=== PATIENT | female | born 1980 | race Caucasian/White ===

== ENCOUNTER 2016-06-15 22:05 | Emergency (ER) | payer SELFPAY ==
--- NOTE | 2016-06-15 22:50 | RAD ---
EXAM DESCRIPTION: XR ANKLE 3 OR MORE VIEWS CLINICAL HISTORY: lateral ankle pain, twisted COMPARISON: None. FINDINGS: AP,lateral and oblique views of the right ankle were submitted. There is soft tissue swelling within the lateral aspect of the ankle. There is no discrete acute fracture or dislocation. The ankle mortise is intact in these non stress views. Bone mineralization is within normal limits. There is no radiopaque foreign body material. IMPRESSION: No acute fracture or dislocation. Electronically signed by: Rocky Block 06/15/2016 22:47
--- NOTE | 2016-06-15 23:30 | ED.PDOC ---
History of Present Illness - General Chief Complaint: Lower Extremity Injury Time Seen by Provider: 06/15/16 22:24 Source: patient Exam Limitations: no limitations - History of Present Illness Initial Comments: the patient is a 35-year-old female presenting to the emergency room secondary to right ankle pain primarily in the lateral aspect since twisting it approximately 6 hours ago. She has had some difficulty walking on it. She is neurovascularly intact. She does have significant swelling and tenderness over the lateral malleolus. No pain in the proximal fibula or knee. No other injuries. No skin lacerations. Passive range of motion is preserved. No pain over the foot otherwise. Occurred: this afternoon Pain - Lower Extremity: moderate: Right Ankle Method of Injury: fell, twisted Improving Factors: immobilization Worsening Factors: movement Allergies/Adverse Reactions: Allergies Sulfa Drugs Allergy (Unverified 09/09/12 02:47) Home Medications: Ambulatory Orders BuPROPion XL [Wellbutrin XL] 150 mg PO BEDTIME 06/15/16 Lorazepam [Ativan] 1 mg PO PRN PRN 06/15/16 Phentermine HCl 37.5 mg PO 0800 06/15/16 Review of Systems - Review of Systems Constitutional: States: no symptoms reported EENTM: States: no symptoms reported Respiratory: States: no symptoms reported Cardiology: States: no symptoms reported Gastrointestinal/Abdominal: States: no symptoms reported Genitourinary: States: no symptoms reported Musculoskeletal: States: see HPI Skin: States: no symptoms reported Neurological: States: no symptoms reported All other Systems: No Change from Baseline Past Medical History (General) - Patient Medical History Hx Seizures: No Hx Stroke: No Hx Asthma: No Hx of COPD: No Hx Cardiac Disorders: No Hx Congestive Heart Failure: No Hx Hypertension: No Hx Diabetes: No Hx MRSA: No - Vaccination History Hx Tetanus, Diphtheria Vaccination: Yes Hx Influenza Vaccination: No Hx Pneumococcal Vaccination: No Immunizations Up to Date: Yes - Social History Hx Tobacco Use: No Hx Alcohol Use: No Hx Substance Use: No - Activities of Daily Living Hospice Agency (if applicable):: None - Female History Patient is a Female of Child Bearing Age (10 -59 yrs old): Yes Patient : No Family Medical History - Family History Father Living Status: Still Living Hx Family Hypertension: Yes Hx Family Diabetes: Yes Mother Hx Family Hypertension: Yes Physical Exam - Physical Exam General Appearance: Alert, Comfortable, No apparent distress Eyes, Ears, Nose, Throat: PERRL/EOMI Neck: full range of motion Cardiovascular/Respiratory: normal peripheral pulses, no respiratory distress Back: normal inspection Thigh/Hip: normal inspection, non-tender, no evidence of injury, normal ROM Leg: normal inspection, non-tender, no evidence of injury, normal ROM Knee: normal inspection, non-tender, no evidence of injury, normal ROM Ankle: other - see history of present illness Foot: normal inspection, non-tender, no evidence of injury, normal ROM Neuro/Tendon: normal sensation, normal motor functions, normal tendon functions Mental Status: alert, oriented x 3 Skin: normal color Comments: Vital Signs - 24 hr 06/15/16 06/15/16 22:17 22:26 Temperature 98.6 F Pulse Rate [ 94 H 94 H Left Radial] Respiratory 18 18 Rate Blood Pressure 133/79 [Left Arm] O2 Sat by Pulse 99 Oximetry Progress - Progress Progress: 06/15/16 23:30 the patient is a 35-year-old female presenting with a right ankle sprain primarily to the lateral aspect. X-ray shows no evidence of fracture or significant dislocation. Motrin and Tylenol can be used for pain control. A walking boot will be used. She needs follow-up with her primary care doctor in 2 weeks. ER warnings were given for any acute worsening. Departure - Departure Clinical Impression: Sprain of right ankle or foot Disposition: Discharge to Home or Self Care Condition: Fair Departure Forms: ED Discharge - Pt. Copy, Patient Portal Self Enrollment Instructions: DI for Ankle Sprain Diet: regular diet Activity: no pushing/pulling with affected limb Home Medications: Ambulatory Orders BuPROPion XL [Wellbutrin XL] 150 mg PO BEDTIME 06/15/16 Lorazepam [Ativan] 1 mg PO PRN PRN 06/15/16 Phentermine HCl 37.5 mg PO 0800 06/15/16 Additional Instructions: the patient is a 35-year-old female presenting with a right ankle sprain primarily to the lateral aspect. X-ray shows no evidence of fracture or significant dislocation. Motrin and Tylenol can be used for pain control. A walking boot will be used. She needs follow-up with her primary care doctor in 2 weeks. ER warnings were given for any acute worsening.
[2016-06-15 23:40] VITALS: BP 133/70; TEMP 98.2; O2SAT 97
== END 2016-06-15 23:44 | disposition home or self-care (01) ==
LOC: ER 22:05
DX: S93.491A Sprain of other ligament of right ankle, initial encounter (principal); Z88.2 Allergy status to sulfonamides; X50.1XXA Overexertion from prolonged static or awkward postures, initial encounter

== ENCOUNTER 2019-02-20 11:51 | Emergency (ER) | payer BC ==
[2019-02-20] MEDS ORDERED: KETOROLAC TROMETHAMINE INJ 30 MG/ML VIAL IM ONE (12:44)
--- NOTE | 2019-02-20 13:12 | RAD ---
Study: 3 View Right Shoulder Indication: right shoulder pain x 1 month, worsening Comparison: None. Impression: A.C. and glenohumeral joint alignment normal without acute fracture or dislocation. No advanced osteoarthritis. Electronically signed by: Boston Mcintosh MD 02/20/2019 1:11 PM CDT
--- NOTE | 2019-02-20 13:26 | ED.PDOC ---
History of Present Illness - General Chief Complaint: General Stated Complaint: R shoulder pain Time Seen by Provider: 02/20/19 12:43 Source: patient, RN notes reviewed, Vital Signs reviewed Exam Limitations: no limitations - History of Present Illness Initial Comments: Pt with right shoulder pain, worsening x 1 month. No known injury. 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 Pt denies any numbness or tingling. Pt c/o crepitus and reduced ROM of the shoulder. Pain is burning/stabbing. Worse with movement. Nothing seems to help the pain. Timing/Duration: getting worse, other - [id number] Severity: moderate Improving Factors: nothing Worsening Factors: movement Associated Symptoms: denies symptoms Allergies/Adverse Reactions: Allergies Sulfa Drugs Allergy (Verified 02/20/19 12:50) Home Medications: Ambulatory Orders BuPROPion XL [Wellbutrin XL] 150 mg PO BEDTIME 06/15/16 Lorazepam [Ativan] 1 mg PO PRN PRN 06/15/16 Phentermine HCl 37.5 mg PO 0800 06/15/16 Methylprednisolone [Medrol Dose Santiago] 4 mg PO DAILY 6 Days #21 tab 02/20/19 Review of Systems - Review of Systems Constitutional: States: see HPI EENTM: States: no symptoms reported Respiratory: States: no symptoms reported Cardiology: States: no symptoms reported Gastrointestinal/Abdominal: States: no symptoms reported Genitourinary: States: no symptoms reported Musculoskeletal: States: see HPI, back pain, joint pain, neck pain Skin: States: no symptoms reported Neurological: States: no symptoms reported All other Systems: Reviewed and Negative Past Medical History (General) - Patient Medical History Hx Seizures: No Hx Stroke: No Hx Asthma: No Hx of COPD: No Hx Cardiac Disorders: No Hx Congestive Heart Failure: No Hx Hypertension: No Hx Diabetes: No Hx Cancer: No Hx MRSA: No Surgical History: no surgical history - Vaccination History Hx Tetanus, Diphtheria Vaccination: No Hx Influenza Vaccination: No Hx Pneumococcal Vaccination: No - Social History Hx Tobacco Use: No Hx Alcohol Use: No Hx Substance Use: No Hx Substance Use Treatment: No Hx Depression: No - Female History Patient is a Female of Child Bearing Age (10 -59 yrs old): Yes Patient : No - Uterine ablasion Family Medical History - Family History Father Living Status: Still Living Hx Family Hypertension: Yes Hx Family Diabetes: Yes Mother Hx Family Hypertension: Yes Physical Exam - Physical Exam General Appearance: Alert, Anxious, Well Developed, Well Groomed, Well Hydrated, Well Nourished Eye Exam: bilateral normal Ears, Nose, Throat: hearing grossly normal, normal ENT inspection, normal pharynx Neck: full range of motion, tender lateral - Pt with spasm and ttp of left paracervical muscles. No midline TTP. Respiratory: chest non-tender, lungs clear, normal breath sounds, no respiratory distress, no accessory muscle use Cardiovascular/Chest: normal peripheral pulses, regular rate, rhythm, no edema, no gallop, no murmur Peripheral Pulses: radial,right: 2+, radial,left: 2+ Gastrointestinal/Abdominal: normal bowel sounds, non tender, soft Back Exam: no vertebral tenderness, muscle spasm - left lateral thoracic muscle spasm and TTP. Extremity: normal capillary refill, other - right shoulder with reduced ROM. Mild crepitus with PROM. TTP over deltoid muscle and bursal capsule. No numbness. Unable to fully lift arm past 90 degrees. 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 Plan d/c home with instructions to take Motrin 800 mg po tid and a Medrol Dose pack and f/u with pcp for referral to PT. I did educate pt on shoulder stretching exercises. Plan d/c home. Pt voices understanding and agreement with the plan of care. Arben Biswas M.D. #[id number] - Results/Orders Results/Orders: Study: 3 View Right Shoulder Indication: right shoulder pain x 1 month, worsening Comparison: None. Impression: A.C. and glenohumeral joint alignment normal without acute fracture or dislocation. No advanced osteoarthritis. Electronically signed by: Boston Mcintosh MD 02/20/2019 1:11 PM CDT Departure - Departure Clinical Impression: Adhesive bursitis of right shoulder Shoulder strain Qualifiers: Encounter type: initial encounter Laterality: right Qualified Code(s): S46.911A - Strain of unspecified muscle, fascia and tendon at shoulder and upper arm level, right arm, initial encounter Disposition: Discharge to Home or Self Care Condition: Good Departure Forms: ED Discharge - Pt. Copy, Patient Portal Self Enrollment Instructions: Shoulder Sprain (DC), Table Stretches for the Shoulder, Frozen Shoulder Exercises, Shoulder Rehab Exercises, Phase 2, Shoulder Pain (DC) Referrals: Franki Taylor MD [Primary Care Provider] - 1-2 Weeks Prescriptions: Methylprednisolone [Medrol Dose Santiago] 4 mg PO DAILY 6 Days #21 tab Home Medications: Ambulatory Orders BuPROPion XL [Wellbutrin XL] 150 mg PO BEDTIME 06/15/16 Lorazepam [Ativan] 1 mg PO PRN PRN 06/15/16 Phentermine HCl 37.5 mg PO 0800 06/15/16 Methylprednisolone [Medrol Dose Santiago] 4 mg PO DAILY 6 Days #21 tab 02/20/19
[2019-02-20 14:13] VITALS: BP 123/78; O2SAT 97
[2019-02-20 14:14] VITALS: TEMP 97
== END 2019-02-20 13:55 | disposition home or self-care (01) ==
LOC: ER 11:51
DX: S46.911A Strain of unspecified muscle, fascia and tendon at shoulder and upper arm level, right arm, initial encounter (principal); M75.01 Adhesive capsulitis of right shoulder; Z79.899 Other long term (current) drug therapy; Z88.2 Allergy status to sulfonamides; X58.XXXA Exposure to other specified factors, initial encounter; Y92.9 Unspecified place or not applicable
CPT/HCPCS: 73030; J1885

== ENCOUNTER 2019-08-26 21:34 | Emergency (ER) | payer SELFPAY ==
[2019-08-26 21:48] VITALS: TEMP 98.6
[2019-08-26 22:01] VITALS: BP 110/66; O2SAT 99
[2019-08-26] MEDS ORDERED: cefTRIAXone SODIUM 1 GM VIAL IM ONE (22:08)
[2019-08-26] MEDS ORDERED: CIPROFLOXACIN 500 MG TAB PO ONE (22:08)
[2019-08-26] MEDS ORDERED: PHENAZOPYRIDINE HCL 200 MG TAB PO ONE (22:08)
--- NOTE | 2019-08-26 22:19 | ED.PDOC ---
History of Present Illness - General Chief Complaint: Problem Stated Complaint: Burning with urination Time Seen by Provider: 08/26/19 21:41 Source: patient Exam Limitations: no limitations - History of Present Illness Initial Comments: Patient is a 38-year-old female presented emergency room secondary to a weeks worth of progressive symptoms of bladder spasm, urinary frequency and dysuria. No definite fevers. Mild nausea. She has had urinary tract infections in the past. She did take a small amount of doxycycline earlier in the week. Timing/Duration: 1 week Severity: moderate Improving Factors: nothing Worsening Factors: nothing Associated Symptoms: denies symptoms Allergies/Adverse Reactions: Allergies Sulfa Drugs Allergy (Verified 02/20/19 12:50) Home Medications: Ambulatory Orders Ciprofloxacin [Cipro] 500 mg PO BID #14 tab 08/26/19 Review of Systems - Review of Systems Constitutional: States: malaise EENTM: States: no symptoms reported Respiratory: States: no symptoms reported Cardiology: States: no symptoms reported Gastrointestinal/Abdominal: States: nausea Genitourinary: States: dysuria, frequency, pain Musculoskeletal: States: no symptoms reported Skin: States: no symptoms reported Neurological: States: no symptoms reported Endocrine: States: no symptoms reported Past Medical History (General) - Patient Medical History Hx Seizures: No Hx Stroke: No Hx Asthma: No Hx of COPD: No Hx Cardiac Disorders: No Hx Congestive Heart Failure: No Hx Hypertension: No Hx Diabetes: No Hx Cancer: No Hx MRSA: No - Vaccination History Hx Tetanus, Diphtheria Vaccination: No Hx Influenza Vaccination: No Hx Pneumococcal Vaccination: No - Social History Hx Tobacco Use: No Hx Alcohol Use: No Hx Substance Use: No Hx Substance Use Treatment: No Hx Depression: No - Female History Patient : No - Uterine ablasion Family Medical History - Family History Father Living Status: Still Living Hx Family Hypertension: Yes Hx Family Diabetes: Yes Mother Hx Family Hypertension: Yes Physical Exam - Physical Exam General Appearance: Alert, No apparent distress, Other - The patient is uncomfortable Eye Exam: bilateral normal Ears, Nose, Throat: hearing grossly normal, normal pharynx Neck: full range of motion Respiratory: no respiratory distress, no accessory muscle use Cardiovascular/Chest: normal peripheral pulses, no edema Peripheral Pulses: radial,right: 2+, radial,left: 2+ Gastrointestinal/Abdominal: soft, other - Mild suprapubic discomfort to palpation. 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 The patient needs to increase her fluid intake and use Motrin 3 times a day for the next couple of days. She can also use Pyridium as necessary. The patient is given a dose of Rocephin here and is going to be written for ciprofloxacin twice daily for the next 7 days as an outpatient. She does need a test of cure at the end of the course. Urine will be cultured. ER warnings are given for any worsening. burton bacon [id number] - Results/Orders Results/Orders: Laboratory Tests 08/26/19 08/26/19 21:45 21:45 Urine Color Yellow Urine Appearance Cloudy Urine pH 5.5 Ur Specific [place] >= 1.030 Urine Protein >=300 H Urine Glucose (UA) Negative Urine Ketones Negative Urine Blood Large H Urine Nitrite Positive H Urine Bilirubin Negative Urine Urobilinogen 0.2 Ur Leukocyte Esterase Large H Urine RBC 20-30 H Urine WBC >100 H Ur Epithelial Cells 5-10 Urine Bacteria 3+ H Urine HCG, Qual Negative Departure - Departure Clinical Impression: Urinary tract infection Qualifiers: Urinary tract infection type: acute cystitis Hematuria presence: without hematuria Qualified Code(s): N30.00 - Acute cystitis without hematuria Disposition: Discharge to Home or Self Care Condition: Fair Departure Forms: ED Discharge - Pt. Copy, Patient Portal Self Enrollment Instructions: DI for Urinary Tract Infection (UTI) Diet: regular diet Activity: increase activity as tolerated Referrals: RANULFO BRITO [Primary Care Provider] - 1-2 Weeks Prescriptions: Ciprofloxacin [Cipro] 500 mg PO BID #14 tab Home Medications: Ambulatory Orders Ciprofloxacin [Cipro] 500 mg PO BID #14 tab 08/26/19 Additional Instructions: The patient is a 38-year-old female presented emergency room secondary to a very significant cystitis. The patient needs to increase her fluid intake and use Motrin 3 times a day for the next couple of days. She can also use Pyridium as necessary. The patient is given a dose of Rocephin here and is going to be written for ciprofloxacin twice daily for the next 7 days as an outpatient. She does need a test of cure at the end of the course. Urine will be cultured. ER warnings are given for any worsening.
== END 2019-08-26 22:29 | disposition home or self-care (01) ==
LOC: ER 21:34
DX: N30.00 Acute cystitis without hematuria (principal); R11.0 Nausea; Z87.440 Personal history of urinary (tract) infections; Z88.2 Allergy status to sulfonamides
CPT/HCPCS: 81001; 81025; 87086; J0696

== ENCOUNTER 2020-03-15 10:31 | Emergency (ER) | payer SELFPAY ==
--- NOTE | 2020-03-15 10:44 | ED.PDOC ---
History of Present Illness - General Chief Complaint: Respiratory Problem Time Seen by Provider: 03/15/20 10:32 Source: patient, RN notes reviewed, Vital Signs reviewed Exam Limitations: no limitations - History of Present Illness Comments: 39 yo F with sore throat x 2 days. no known sick contacts. no cough, unsure if she has had fever. no lost of taste or smell. no body aches. took motrin which did help the pain. works as a sitter for the elderly. Timing/Duration: other - 2 days Cough Quality/Degree: no cough Allergies/Adverse Reactions: Allergies Sulfa Drugs Allergy (Verified 02/20/19 12:50) Home Medications: Ambulatory Orders Penicillin V Potassium 500 mg PO BID #20 tab 03/15/20 Review of Systems - Review of Systems Constitutional: Denies: chills, fever EENTM: States: throat pain, throat swelling. Denies: tearing, double vision Respiratory: Denies: cough, short of breath Cardiology: Denies: chest pain, palpitations Gastrointestinal/Abdominal: Denies: abdominal pain, nausea, vomiting Genitourinary: Denies: discharge, dysuria, frequency, hematuria Musculoskeletal: Denies: back pain, muscle pain Skin: Denies: rash Neurological: Denies: headache, numbness, weakness Endocrine: Denies: unexplained weight gain, unexplained weight loss Hematologic/Lymphatic: Denies: blood clots, easy bleeding, easy bruising Past Medical History (General) - Patient Medical History Hx Seizures: No Hx Stroke: No Hx Asthma: No Hx of COPD: No Hx Cardiac Disorders: No Hx Congestive Heart Failure: No Hx Hypertension: No Hx Diabetes: No Hx Cancer: No Hx MRSA: No - Vaccination History Hx Tetanus, Diphtheria Vaccination: No Hx Influenza Vaccination: No Hx Pneumococcal Vaccination: No - Social History Hx Tobacco Use: No Hx Alcohol Use: No Hx Substance Use: No Hx Substance Use Treatment: No Hx Depression: No - Female History Patient : No - Uterine ablasion Family Medical History - Family History Father Living Status: Still Living Hx Family Hypertension: Yes Hx Family Diabetes: Yes Mother Hx Family Hypertension: Yes Physical Exam - Physical Exam General Appearance: Alert, Comfortable, No apparent distress, Well Developed, Well Groomed, Well Hydrated, Well Nourished ENT Exam: normal ENT inspection, hearing grossly normal, TMs normal, pharyngeal erythema, other - exudate, tonsils swollen. 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 patient given dexamehtasone tab 8 mg po x 1. The data reviewed when caring for this patient included: nurse notes, prior records, etc. The history and assessments from nurses notes were reviewed and considered, and the patient's home medication list was also reviewed and considered. My assessment and the results of testing completed here in the ED were discussed with the patient/family. All questions were answered, and they express understanding of my assessment and the plan. They have been instructed to return if their symptoms worsen, and have been asked to follow up with their primary care physician to recheck today's presenting complaint. return precautions given. I have reviewed medication, benefits, alternatives and side effects. Patient decided to proceed with medication. Shona Tang DO #[id number] Departure - Departure Clinical Impression: Streptococcal sore throat Time of Disposition: 11:23 Disposition: Discharge to Home or Self Care Departure Forms: ED Discharge - Pt. Copy, Patient Portal Self Enrollment Instructions: Sore Throat, Adult (DC) Referrals: RANULFO BRITO [Primary Care Provider] - 1 Week Prescriptions: Penicillin V Potassium 500 mg PO BID #20 tab Home Medications: Ambulatory Orders Penicillin V Potassium 500 mg PO BID #20 tab 03/15/20
[2020-03-15 11:22] VITALS: O2SAT 99
[2020-03-15] MEDS ORDERED: DEXAMETHASONE 4 MG TAB PO ONE (11:24)
[2020-03-15 11:57] VITALS: BP 116/79; TEMP 96.6
== END 2020-03-15 11:45 | disposition home or self-care (01) ==
LOC: ER 10:31
DX: J02.0 Streptococcal pharyngitis (principal); Z88.2 Allergy status to sulfonamides
CPT/HCPCS: 87880; J8540

== ENCOUNTER 2020-07-16 11:01 | Emergency (ER) | payer SELFPAY ==
[2020-07-16 11:30] VITALS: TEMP 97.7; O2SAT 99
--- NOTE | 2020-07-16 11:41 | ED.PDOC ---
History of Present Illness - General Chief Complaint: Skin/Abrasion/Tear Stated Complaint: nodule right breast X 1 week Time Seen by Provider: 07/16/20 11:03 Source: patient Exam Limitations: no limitations - History of Present Illness Initial Comments: The patient is a 39-year-old female presented emergency room secondary to 3 days of symptoms of pain to the right breast. The patient has some erythema just medial to the areola of the right breast. There is mild underlying fluctuance. No drainage from the nipple itself. The patient is not reporting any fever. No history of any recent mastitis. No recent trauma. The patient is pleasant and cooperative. Timing/Duration: other - 3 days Severity: moderate Improving Factors: nothing Worsening Factors: other - Palpation Associated Symptoms: denies symptoms Allergies/Adverse Reactions: Allergies Sulfa Drugs Allergy (Verified 07/16/20 11:21) Home Medications: Ambulatory Orders Cephalexin Monohydrate [Keflex] 500 mg PO Q8H #20 cap 07/16/20 Clindamycin HCl 300 mg PO Q8H #21 cap 07/16/20 Review of Systems - Review of Systems Constitutional: States: no symptoms reported EENTM: States: no symptoms reported Respiratory: States: no symptoms reported Cardiology: States: no symptoms reported Gastrointestinal/Abdominal: States: no symptoms reported Genitourinary: States: no symptoms reported Musculoskeletal: States: no symptoms reported Skin: States: see HPI Neurological: States: no symptoms reported Endocrine: States: no symptoms reported All other Systems: No Change from Baseline Past Medical History (General) - Patient Medical History Hx Seizures: No Hx Stroke: No Hx Dementia: No Hx Asthma: No Hx of COPD: No Hx Cardiac Disorders: No Hx Congestive Heart Failure: No Hx Pacemaker: No Hx Hypertension: No Hx Thyroid Disease: No Hx Diabetes: No Hx Gastroesophageal Reflux: No Hx Renal Disease: No Hx Cancer: No Hx of HIV: No Hx Hepatitis C: No Hx MRSA: No - Vaccination History Hx Tetanus, Diphtheria Vaccination: No Hx Influenza Vaccination: No Hx Pneumococcal Vaccination: No - Social History Hx Tobacco Use: No Hx Alcohol Use: No Hx Substance Use: No Hx Substance Use Treatment: No Hx Depression: No - Female History Patient : No - Uterine ablasion Family Medical History - Family History Father Living Status: Still Living Hx Family Hypertension: Yes Hx Family Diabetes: Yes Mother Family History: No Known Hx Family Hypertension: Yes Physical Exam - Physical Exam General Appearance: Alert, Comfortable, No apparent distress Eye Exam: bilateral normal Ears, Nose, Throat: hearing grossly normal Neck: full range of motion Respiratory: no respiratory distress, no accessory muscle use Cardiovascular/Chest: regular rate, rhythm, no edema Peripheral Pulses: radial,right: 2+, radial,left: 2+ Gastrointestinal/Abdominal: non tender, soft Rectal Exam: deferred Extremity: normal range of motion, non-tender, normal inspection, no pedal edema, normal capillary refill 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 Symptoms have been present for about 3 days according to her. Needle aspiration was performed and a small amount of pus was obtained and is being cultured. As the patient is nonlactational, she is going to be double covered with Keflex and clindamycin. I do want the patient to take a daily picture of the area under the same lighting conditions to confirm that the area is not significantly spreading at least for the next week. I do want her to follow back up with her primary care doctor sometime within the next week as well for repeat evaluation. At this point in time the source is felt to be most likely infectious. ER warnings are given. [facility] [id number] - EKG/XRAY/CT CT Ordered: No CT Interpretation Call Back: No Departure - Departure Clinical Impression: Mastitis of right breast unrelated to of Disposition: Discharge to Home or Self Care Condition: Fair Departure Forms: ED Discharge - Pt. Copy, Patient Portal Self Enrollment Diet: regular diet Activity: increase activity as tolerated Referrals: RANULFO BRITO [Primary Care Provider] - 1-2 Weeks Prescriptions: Clindamycin HCl 300 mg PO Q8H #21 cap Cephalexin Monohydrate [Keflex] 500 mg PO Q8H #20 cap Home Medications: Ambulatory Orders Cephalexin Monohydrate [Keflex] 500 mg PO Q8H #20 cap 07/16/20 Clindamycin HCl 300 mg PO Q8H #21 cap 07/16/20 Additional Instructions: The patient is a 39-year-old female presented emergency room with what appears to be likely a mastitis to the medial aspect of her right breast. Symptoms have been present for about 3 days according to her. Needle aspiration was performed and a small amount of pus was obtained and is being cultured. As the patient is nonlactational, she is going to be double covered with Keflex and clindamycin. I do want the patient to take a daily picture of the area under the same lighting conditions to confirm that the area is not significantly spreading at least for the next week. I do want her to follow back up with her primary care doctor sometime within the next week as well for repeat evaluation. At this point in time the source is felt to be most likely infectious. Motrin or Aleve can be used for discomfort. ER warnings are given.
[2020-07-16 12:03] VITALS: BP 128/74
== END 2020-07-16 12:02 | disposition home or self-care (01) ==
LOC: ER 11:01
DX: N61.0 Mastitis without abscess (principal); Z88.2 Allergy status to sulfonamides